=== PATIENT | female | born 1985 | race American Indian/Alaskan Native ===

== ENCOUNTER 2019-11-03 01:22 | Emergency (ER) | payer BC, MEDICAID ==
[2019-11-03 02:53] VITALS: BP 126/71
[2019-11-03 03:44] LABS: Basophils # (Auto) 0.1 K/mm3 (0.0-0.1); Eosinophils # (Auto) 0.1 K/mm3 (0.0-0.4); Eosinophils % (Auto) 0.7 % (0.0-4.3); Hematocrit 30.1 % (30.3-42.9); Hemoglobin 9.6 gm/dl (10.1-14.3); Lymphocytes # (Auto) 4.1 K/mm3 (1.2-5.4); Lymphocytes % (Auto) 26.7 % (13.4-35.0); Mean Corpuscular HGB Conc 32 % (30-34); Mean Corpuscular Volume 76 fl (79-97); Monocytes # (Auto) 1.2 K/mm3 (0.0-0.8); Monocytes % (Auto) 7.8 % (0.0-7.3); Platelet Count 318 K/mm3 (140-440); Red Blood Count 3.96 M/mm3 (3.65-5.03); Red Cell Distribution Width 20.9 % (13.2-15.2)
[2019-11-03 04:27] LABS: Alanine Aminotransferase 16 units/L (7-56); Albumin 3.9 g/dL (3.9-5); Blood Urea Nitrogen 5 mg/dL (7-17); Calcium 9.3 mg/dL (8.4-10.2); Hemolysis Index 10
[2019-11-03 04:31] LABS: BUN/Creatinine Ratio 10
--- NOTE | 2019-11-03 06:30 | Ultrasound Report ---
ULTRASOUND OBSTETRIC, 11/03/2019 CLINICAL INFORMATION/INDICATION: Abdominal pain in COMPARISON: None FINDINGS: There is a single intrauterine . BPD = 3.4 cm = 16 weeks, 4 day(s). Head circumference = 13.3 cm = 16 weeks, 6 day(s). Abdominal circumference = 10.8 cm = 16 weeks, 5 day(s). Femur length = 2.0 cm = 16 weeks, 0 day(s). Overall estimated sonographic age = 16 weeks, 4 day(s). heart rate is 150 beats per minute. position is cephalic. Placenta is anterior and grade 0 . Amniotic fluid volume appears within normal limits. Impression: 1. Single living intrauterine with estimated sonographic age of 16 weeks, 4 day(s). Signer Name: Michelle Torre MD Signed: 11/03/2019 6:25 AM Workstation Name: [id number]
[2019-11-03 06:51] LABS: Bilirubin,Urine NEG (Negative); Blood,Urine NEG (Negative); Color,Urine Yellow (Yellow); Mucus,Urine 2+ /HPF; Protein,Urine <15 mg/dL mg/dL (Negative); Urobilinogen,Urine < 2.0 mg/dL (<2.0)
--- NOTE | 2019-11-03 07:01 | Emergency Department Report ---
ED Abdominal Pain HPI - General Chief Complaint: Abdominal Pain Stated Complaint: ABDOMINAL PAIN Time Seen by Provider: 11/03/19 06:14 Source: patient Mode of arrival: Ambulatory Limitations: No Limitations - History of Present Illness Initial Comments: 34-year-old F [place]cu[place] female since about 17 weeks presents emergency department complaining of a 2-day history of abdominal pressure of unknown etiology. Reports no vaginal bleeding, vaginal discharge, no fever, chills, sweats no chest pain or palpitations. Reports no flank pain, MD Complaint: abdominal pain Radiation: none Migration to: no migration Severity: mild Consistency: constant Improves With: nothing Worsens With: nothing - Related Data Home Medications Medication Instructions Recorded Confirmed Last Taken No Known Home Medications [No 11/02/15 11/02/15 Unknown Reported Home Medications] Allergies Allergy/AdvReac Type Severity Reaction Status Date / Time No Known Allergies Allergy Unverified 11/02/15 07:40 ED Review of Systems ROS: Stated complaint: ABDOMINAL PAIN Other details as noted in HPI Comment: All other systems reviewed and negative ED Past Medical Hx - Past Medical History Previous Medical History?: No - Surgical History Past Surgical History?: No - Social History Smoking Status: Never Smoker - Medications Home Medications: Home Medications Medication Instructions Recorded Confirmed Last Taken Type No Known Home Medications [No 11/02/15 11/02/15 Unknown History Reported Home Medications] ED Physical Exam - General Limitations: No Limitations General appearance: alert, in no apparent distress - Head Head exam: Present: atraumatic, normocephalic - Eye Eye exam: Present: normal appearance Pupils: Present: normal accommodation - ENT ENT exam: Present: normal exam, normal orophraynx, mucous membranes moist, TM's normal bilaterally - Neck Neck exam: Present: normal inspection, tenderness, full ROM - Respiratory Respiratory exam: Present: normal lung sounds bilaterally. Absent: respiratory distress - Cardiovascular Cardiovascular Exam: Present: regular rate, normal rhythm. Absent: systolic murmur, diastolic murmur, rubs, gallop - GI/Abdominal GI/Abdominal exam: Present: soft, tenderness, normal bowel sounds - Extremities Exam Extremities exam: Present: normal inspection - Back Exam Back exam: Present: normal inspection - Neurological Exam Neurological exam: Present: alert, oriented X3 - Psychiatric Psychiatric exam: Present: normal affect, normal mood - Skin Skin exam: Present: warm, dry, intact, normal color. Absent: rash ED Course Vital Signs 11/03/19 02:25 Temperature 99.0 F Pulse Rate 92 H Respiratory 18 Rate Blood Pressure 126/71 O2 Sat by Pulse 99 Oximetry ED Medical Decision Making - Lab Data Result diagrams: 11/03/19 03:10 11/03/19 03:10 - Radiology Data Radiology results: report reviewed [facility] [address] [place] [address] Ultrasound Report Signed Patient: HOMER RICH MR#: [id number] : 1985 Acct:[id number] Age/Sex: 34 / F ADM Date: 11/03/19 Loc: ED Attending Dr: Ordering Physician: TLYER OLIVER Date of Service: 11/03/19 Procedure(s): US OB >= 14 weeks Fetus Accession Number(s): [id number] cc: TYLER OLIVER ULTRASOUND OBSTETRIC, 11/03/2019 CLINICAL INFORMATION/INDICATION: Abdominal pain in COMPARISON: None FINDINGS: There is a single intrauterine . BPD = 3.4 cm = 16 weeks, 4 day(s). Head circumference = 13.3 cm = 16 weeks, 6 day(s). Abdominal circumference = 10.8 cm = 16 weeks, 5 day(s). Femur length = 2.0 cm = 16 weeks, 0 day(s). Overall estimated sonographic age = 16 weeks, 4 day(s). heart rate is 150 beats per minute. position is cephalic. Placenta is anterior and grade 0 . Amniotic fluid volume appears within normal limits. Impression: 1. Single living intrauterine with estimated sonographic age of 16 weeks, 4 day(s). Signer Name: Michelle Torre MD Signed: 11/03/2019 6:25 AM Workstation Name: [id number] Transcribed By: EB Dictated By: Michelle Torre MD Electronically Authenticated By: Michelle Torre MD Signed Date/Time: 11/03/19624 DD/ 0 TD/TT: - Medical Decision Making The patient is oriented to person, place, and time, has the capacity to make decisions regarding the medical care offered. The patient speaks coherently and exhibits no evidence of having an altered level of consciousness or alcohol or drug intoxication to a point that would impair judgment. They respond knowingly to questions about recommended treatment and alternate treatments including no further testing or treatment; participate in diagnostic and treatment decisions by means of rational thought processes; and understand the items of minimum basic medical treatment information with respect to that treatment (the nature and seriousness of the illness, the nature of the treatment, the probable degree and duration of any benefits and risks of any medical intervention that is being recommended, and the consequences of lack of treatment, and the nature, risks, and benefits of any reasonable alternatives). I have reviewed the relevant issues with the patient. They are aware of the suspected diagnosis suggested by screening exam and ultrasound report., based upon the initiated medical screening exam. The patient acknowledges understanding of the reasons for recommendations regarding medical treatment, medical testing, and further monitoring and observation. The recommended medical care being refused has been discussed with the patient and is [_]. The risks of refusing recommended care that were disclosed and acknowledged by the patient a re loss of current lifestyle, permanent mental impairment, and . The patient understands the relevant information of the nature of their medical condition, as well as the risks, benefits, and treatment alternatives (including non-treatment), consequences of refusing care, and can competently communicate a rational explanation about their choice of care options. [Discharge instructions were provided to the patient.] The patient understands they are welcome to return to the hospital at any time to receive the recommended care or any other care at any time, regardless of their ability to pay for such care. Critical care attestation.: If time is entered above; I have spent that time in minutes in the direct care of this critically ill patient, excluding procedure time. ED Disposition Clinical Impression: Abdominal pain affecting Disposition: DC-07 LEFT AGAINST MED ADVICE Is pt being admited?: No Does the pt Need Aspirin: No Condition: Stable Instructions: Abdominal Pain (ED) Referrals: PRIMARY CARE, [Primary Care Provider] - 3-5 Days Forms: AMA Form
== END 2019-11-03 07:01 | disposition left against medical advice (07) ==
LOC: ED 01:22
DX: O26.892 Other specified pregnancy related conditions, second trimester (principal); R10.9 Unspecified abdominal pain; Z3A.16 16 weeks gestation of pregnancy
CPT/HCPCS: 36415; 76805; 80053; 81001; 83690; 84702; 85025

== ENCOUNTER 2020-01-24 16:19 | Observation (INO) | payer MEDICAID ==
[2020-01-24] MEDS ORDERED: LACTATED RINGERS 1,000 ML IV ONE (18:09)
[2020-01-24 18:49] LABS: Bilirubin,Urine NEG (Negative); Blood,Urine NEG (Negative); Color,Urine Yellow (Yellow); Mucus,Urine FEW /HPF; Protein,Urine <15 mg/dL mg/dL (Negative); Urobilinogen,Urine < 2.0 mg/dL (<2.0)
[2020-01-24 18:50] LABS: Amphetamine Screen,Urine Negative; Benzodiazepines Screen,Urine Negative; Cannabinoid Screen,Urine Negative; Cocaine Screen,Urine Negative; Methadone Screen,Urine Negative; Opiate Screen,Urine Negative
[2020-01-24] MEDS ORDERED: ONDANSETRON 4 MG/2 ML INJ IV ONE (20:52)
--- NOTE | 2020-01-24 21:03 | Ultrasound Report ---
ULTRASOUND OBSTETRIC LIMITED ULTRASOUND BIOPHYSICAL PROFILE INDICATION / CLINICAL INFORMATION: BPP. Clinical Gestational Age (GA): 29 weeks. 2 days COMPARISON: 11/03/2019 FINDINGS: BREATHING MOVEMENT = 2 GROSS BODY MOVEMENT = 2 TONE = 2 QUALITATIVE AMNIOTIC FLUID VOLUME = 2 TOTAL BIOPHYSICAL SCORE = 8/8 HEART RATE (beats per minute): 145 AMNIOTIC FLUID INDEX (cm) = 8.4 (normal = 7-24 cm) PRESENTATION: Cephalic. ADDITIONAL FINDINGS: No placental abruption seen. Fibroids are noted adjacent to the placenta. The pl acenta is grade 1 and anterior. IMPRESSION: 1. Biophysical Score = 8/8 2. No evidence of placental abruption. 3. STEPHANIE is within normal limits at 8.4 cm. Signer Name: Raheem Rollins MD Signed: 01/24/2020 8:58 PM Workstation Name: [id number]
[2020-01-24] MEDS ORDERED: TERBUTALINE 1 MG/1 ML INJ SUB-Q ONE ×2 (21:24→22:30)
[2020-01-25] MEDS ORDERED: ACETAMINOPHEN 325 MG TAB PO PRN (00:16)
[2020-01-25] MEDS ORDERED: DOCUSATE SODIUM 100 MG CAP PO PRN (00:16)
--- NOTE | 2020-01-25 00:27 | History and Physical Report ---
History of Present Illness Date of examination: 01/24/20 Date of admission: 01/24/2020 Chief complaint: Pelvic pain. History of present illness: 34 year old presents with complaint of pelvic pain felt mostly in lower pelvis starting today, resolving, then returning. Patient denies leaking of fluid or vaginal bleeding. Patient reports active movement. Patient receives care at [facility] and records are not available. LMP 07/03/2019. EDC 04/08/2019 (self reported by patient). significant for uterine fibroids. Patient states she has been seeing perinatology re: this problem during her . records will be requested when [facility] open Saturday morning. Patient was found to have contractions; she received IV hydration, SQ Brethine but contractions returned. She was given Procardia and this kept contractions away longer but she states they have now returned again. Cervix is closed and thick and high but feels softer and thinner now than when patient first arrived in triage. 23 hour observation undertaken. Urinalysis negative. US done in triage showed uterine fibroids adjacent to the placenta, BPP 8/8, STEPHANIE 8.4 cm, no signs of abruption. 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 denies: chlamydia, gonorrhea, hepatitis B, hepatitis C, herpes, HIV, syphilis, trichomonas Family/Genetic History: diabetes Social history: lives with family, full code. denies: smoking, alcohol abuse, prescription drug abuse, IV drug use - Obstetrical History Expected Date of Delivery: 04/08/20 Actual Gestation: 29 Week(s) 3 Day(s) : 5 Para: 1 Hx # Term Pregnancies: 1 Number of Pregnancies: 0 Spontaneous Abortions: 1 Induced : 2 Number of Living Children: 1 Medications and Allergies Allergies Allergy/AdvReac Type Severity Reaction Status Date / Time No Known Allergies Allergy Unverified 11/02/15 07:40 Home Medications Medication Instructions Recorded Confirmed Last Taken Type No Known Home Medications [No 11/02/15 11/02/15 Unknown History Reported Home Medications] Active Meds: Active Medications Acetaminophen (Tylenol) 650 mg PO Q4H PRN PRN Reason: Pain MILD(1-3)/Fever >100.5/LARKIN Docusate Sodium (Colace) 100 mg PO Q12H PRN PRN Reason: Constipation Lactated Ringer's (Lactated Ringers) 1,000 mls @ 125 mls/hr IV DIRECT VINAY Multivitamins/Iron/Calcium ( Vitamin) 1 each PO QDAY [facility] Nifedipine (Procardia*For Tocolysis Only*) 10 mg PO ONCE ONE Stop: 01/25/20 00:30 Review of Systems All systems: negative (pelvic pain) - Vital Signs Vital signs: Vital Signs Pulse BP 95 H 121/76 01/24/20 16:50 01/24/20 16:50 Temp Pulse Resp BP Pulse Ox 98.2 F 104 H 18 121/76 99 01/24/20 19:55 01/24/20 22:56 01/24/20 19:55 01/24/20 16:50 01/24/20 22:56 - Physical Exam Abdomen: Positive: normal appearance, soft. Negative: distention, tenderness, guarding, rigidity Genitourinary (Female): Positive: normal external genitalia, normal perenium. Negative: perineal/vulvar lesions Vagina: Positive: normal moisture Uterus: Positive: enlarged. Negative: tender Anus/Rectum: Positive: normal perianal skin Extremities: Positive: normal. Negative: tenderness, edema - Obstetrical FHR: category 1 (AGA) Uterine Contraction Monitor Mode: External Cervical Dilatation: 0 Cervical Effacement Percentage: 20 (soft) station: -3 Uterine Contraction Pattern: Irregular Uterine Contraction Intensity: Mild Results All other labs normal. Assessment and Plan A: at 29 weeks, 3 days gestation. contractions. Uterine fibroids. Obesity. No records available. P: Admit for 23 hour observation. Cultures for GC/CT, urine culture. Continue hydration. Procardia for tocolysis. Celestone for FLClementine. MD to see/evaluate patient today. Request records from [facility] as soon as they open.
[2020-01-25] MEDS ORDERED: NIFEdipine*For Tocolysis only* 10 MG CAPSULE PO ONE ×2 (00:29→06:23)
[2020-01-25] MEDS ORDERED: LACTATED RINGERS 1,000 ML IV SCH ×2 (01:00→07:00)
[2020-01-25] MEDS ORDERED: BETAMET ACET/BETAMET NA PH 6 MG/ML INJ 5 ML MDV IM SCH (06:30)
[2020-01-25 08:12] LABS: Basophils % (Auto) 0.1 % (0.0-1.8); Eosinophils % (Auto) 0.4 % (0.0-4.3); Hematocrit 28.5 % (30.3-42.9); Hemoglobin 9.2 gm/dl (10.1-14.3); Lymphocytes # (Auto) 2.5 K/mm3 (1.2-5.4); Lymphocytes % (Auto) 24.3 % (13.4-35.0); Mean Corpuscular HGB Conc 32 % (30-34); Mean Corpuscular Volume 81 fl (79-97); Monocytes # (Auto) 0.6 K/mm3 (0.0-0.8); Platelet Count 213 K/mm3 (140-440); Red Blood Count 3.51 M/mm3 (3.65-5.03)
[2020-01-25 08:31] LABS: Alanine Aminotransferase 26 units/L (7-56); Albumin 3.2 g/dL (3.9-5); Blood Urea Nitrogen 4 mg/dL (7-17); Hemolysis Index 0
[2020-01-25 08:35] LABS: BUN/Creatinine Ratio 8
[2020-01-25] MEDS ORDERED: PRENATAL VIT27-FE FUMARATE-FOLIC ACID VIT TAB PO SCH (10:00)
[2020-01-25 11:40] VITALS: BP 123/59
--- NOTE | 2020-01-25 21:42 | Discharge Summary ---
Providers - Providers Date of Admission: 01/24/20 19:52 Date of discharge: 01/25/20 Attending physician: MARKY ROSALES MD Primary care physician: MARKY ROSALES MD Hospitalization Reason for admission: labor Hospital course: 34 year old at 29-30 weeks gestation c/b hx fibroids and anemia presenting with complaint of pelvic pain, found to have contractions. No LOF, VB. +FM. Patient receives care at [facility] Contractions improved with IVF and nifedipine 10mg q6hrs. Cervix unchanged at closed and discharged in good condition. Condition at discharge: Good Disposition: DC-01 TO HOME OR SELFCARE Plan - Discharge Medications Prescriptions: NIFEdipine [Procardia] 10 mg PO Q6H PRN #120 capsule PRN Reason: Labor Pain - Provider Discharge Summary Activity: routine Diet: routine Instructions: routine Additional instructions: [] Smoking cessation referral if applicable(refer to patient education folder for contact #) [] Refer to [facility]'s [facility] Booklet Call your doctor immediately for: * Fever > 100.5 * Heavy vaginal bleeding ( >1 pad per hour) * Severe persistent headache * Shortness of breath * Reddened, hot, painful area to leg or breast * Drainage or odor from incision. * Keep incision clean and dry at all times and follow doctor's instructions regarding bathing/showering - Follow up plan Follow up: MARKY ROSALES MD [Primary Care Provider] - 7 Days (FOLLOW UP WITH YOUR OBGYN IN 1 WEEK) Forms: Discharge Signature Page
== END 2020-01-25 14:00 | disposition home or self-care (01) ==
LOC: TRG 16:19 → APU 16:20 → LD 19:52 → TRG 19:52
PROVIDERS: ADMIT Obstetrics & Gynecology; ATTEND Obstetrics & Gynecology
DX: O60.03 Preterm labor without delivery, third trimester (principal); Z20.828 Contact with and (suspected) exposure to other viral communicable diseases; O34.13 Maternal care for benign tumor of corpus uteri, third trimester; O99.213 Obesity complicating pregnancy, third trimester; O99.013 Anemia complicating pregnancy, third trimester; Z3A.29 29 weeks gestation of pregnancy; Z79.899 Other long term (current) drug therapy
CPT/HCPCS: 36415; 76815; 76819; 80053; 80307; 81001; 85025; 86850; 86900; 86901; 87086; 96361; 96372; 96374; G0378; J2405; J3105; J7120; U0003